=== PATIENT | female | born 1990 | race American Indian/Alaskan Native ===

== ENCOUNTER 2017-06-23 01:22 | Emergency (ER) | payer OTHER ==
[2017-06-23 01:35] VITALS: BP 108/74
--- NOTE | 2017-06-23 03:11 | XRay Report ---
FINAL REPORT EXAM: XR HAND 2V LT HISTORY: left hand swelling/ s/p fall COMPARISON: None available. FINDINGS: Three views of right hand obtained. Bony structures are intact. Joint spaces are preserved. No acute fracture dislocation. On the PA view, there is a lucency extending through the distal radius which extends into the adjacent soft tissues compatible with artifact. No definite fracture line. IMPRESSION: No acute bony abnormality.
== END 2017-06-23 08:19 | disposition left against medical advice (07) ==
LOC: EEVIPCON 01:22 → ED 01:22
DX: M25.532 Pain in left wrist (principal); Z53.21 Procedure and treatment not carried out due to patient leaving prior to being seen by health care provider